=== PATIENT | male | born 1955 | race Caucasian/White ===

== ENCOUNTER 2017-11-07 22:58 | Inpatient (IN) | payer MEDICARE, OTHER ==
[~2017-11-07] VITALS: Ht 172.7 cm; Wt 81.2 kg
[2017-11-07] MEDS ORDERED: GLUC1KIT SQ (23:42)
[2017-11-07] MEDS ORDERED: CITA20TA16 PO (23:42)
[2017-11-07] MEDS ORDERED: LEVO88TA5 PO (23:42)
[2017-11-07] MEDS ORDERED: METF500T6 PO (23:42)
[2017-11-07] MEDS ORDERED: ASEN10TA9 SL (23:42)
[2017-11-07] MEDS ORDERED: BLOO-140 IN (23:42)
[2017-11-07] MEDS ORDERED: TAMS0.4C34 PO (23:42)
[2017-11-07] MEDS ORDERED: DEXT38GE12 PO (23:42)
[2017-11-07] MEDS ORDERED: LIOT5TAB8 PO (23:42)
[2017-11-07] MEDS ORDERED: CLON1TAB5 PO (23:42)
[2017-11-07] MEDS ORDERED: DIVA-78 PO (23:42)
[2017-11-07] MEDS ORDERED: BENZ1TAB7 PO (23:42)
[2017-11-07] MEDS ORDERED: CHOL200078 PO (23:42)
[2017-11-07] MEDS ORDERED: ACET325T53 PO (23:42)
[2017-11-07] MEDS ORDERED: ASPI-605 PO (23:42)
[2017-11-07] MEDS ORDERED: BREX4TAB PO (23:42)
[2017-11-07] MEDS ORDERED: HALO10TA13 PO (23:42)
[2017-11-08] VITALS (21 sets, daily range): BP systolic 96–123; BP diastolic 39–79
[2017-11-08 00:29] LABS: CREATININE 0.8 mg/dL (0.6-1.3)
[2017-11-08] MEDS ORDERED: CEFTRIAXONE 1 G in IV DEXTROSE 5% 50 ML IV ONE (00:30)
[2017-11-08] MEDS ORDERED: PIPERACILLIN SODIUM/TAZOBACTAM 3.375 G in IV DEXTROSE 5% 50 ML IV ONE (00:30)
[2017-11-08 00:35] LABS: BASOPHILS % (AUTO) 0.5 % (0.0-2.0); BILIRUBIN,DIRECT 0.2 mg/dL (0.0-0.2); BILIRUBIN,TOTAL 0.4 mg/dL (0.2-1.0); HEMATOCRIT 32.5 % (36.7-47.1); HEMOGLOBIN 11.3 g/dL (12.5-16.3); LYMPHOCYTES % (AUTO) 24.1 % (20.5-51.5); MEAN CORPUSCULAR HGB CONC 35 g/dL (32.5-36.3); MEAN CORPUSCULAR VOLUME 106.7 fL (73.0-96.2); MONOCYTES # (AUTO) 0.5 K/uL (2.0-10.0); MONOCYTES % (AUTO) 10.7 % (0.0-11.0); NEUTROPHILS # (AUTO) 2.8 K/uL (1.8-8.9); NEUTROPHILS % (AUTO) 63.7 % (38.5-71.5); PLATELET COUNT (AUTO) 100 K/uL (152-348); RED BLOOD CELL COUNT(AUTO) 3.05 MIL/uL (4.06-5.63); TOTAL PROTEIN, SERUM 6.6 g/dL (6.4-8.2); WHITE BLOOD COUNT (AUTO) 4.4 K/uL (3.6-10.2)
--- NOTE | 2017-11-08 00:40 | NUR ---
REPORT GIVEN TO CCU NURSESANJEEV
[2017-11-08] MEDS ORDERED: CEFTRIAXONE 1 G VIAL ONE (00:46)
[2017-11-08 00:47] LABS: THYROID STIMULATING HORMONE 6.52 mIU/mL (0.358-3.740)
[2017-11-08 00:52] LABS: MAGNESIUM 1.8 mg/dL (1.8-2.4)
[2017-11-08] MEDS ORDERED: PIPERACILLIN/TAZOBACTAM/D5W 50 ML IV ONE (01:13)
--- NOTE | 2017-11-08 01:30 | NUR ---
Pt. admitted to CCU, under care of PAVING AND SURFACING LABOURER PAM Belongs List completed
--- NOTE | 2017-11-08 01:30 | NUR ---
Rodolfo escalante in [facility] - 11/08/17 at 0221 by JCEVERARDO Pt. admitted to [facility], under care of SEASONER PAM Stoner List completed
--- NOTE | 2017-11-08 01:40 | NUR ---
RECEIVED PATIENT FROM ER VIA [employer] . TRAV STATUS .5150 DANGER TO SELF AND HALLUCINATING. DX : BRADYCARDIA.PATIENT AWAKE BUT CONFUSED . MAEX4, ABLE TO FOLLOW SIMPLE COMMANDS . ORIENTED AND CONNECTED TO ICU MONITORS . SB RATE 51, ASYMPTOMATIC BP 112/52 SATURATION 98 RA AND RR 20 . DENIES PAIN WHEN ASKED . PHOTO TAKE ON PATIENT LOWER BILATERAL EXTREMITIES DISCOLORATION, LEFT FOOT WITH WOUND ,DRY WITH SCAB AND SACRAL KADE REDNESS , WELL REFER/ CONSULT TO ENVIRONMENTAL HEALTH PHYSICIAN . CONTINUE TO MONITOR V/S AND LEVELS OF COMFORT .UNABLE TO COLLECT ADMISSION DATA FROM PATIENT C/O AMS/CONFUSED DATA COLLECTED FROM CHART .
--- NOTE | 2017-11-08 02:22 | NUR ---
CALLED [facility] FOR ADMISSION ORDERS. ANALI OROZCO ANSWERED BACK AND SHE SAID SHE KNOWS HIM, AND SHE WILL PUT ORDERS .
[2017-11-08] MEDS ORDERED: ACETAMINOPHEN 325 MG TABLET PO PRN ×2 (02:30→16:30)
[2017-11-08] MEDS ORDERED: HYDROCODONE/APAP 5-325MG TABLET PO PRN (02:30)
[2017-11-08] MEDS ORDERED: ZOLPIDEM 5 MG TABLET PO PRN (02:30)
[2017-11-08] MEDS ORDERED: ONDANSETRON 4 MG/2 ML VIAL IV PRN (02:30)
[2017-11-08] MEDS ORDERED: MAGNESIUM HYDROXIDE 30 ML LIQUID UDC PO PRN (02:30)
--- NOTE | 2017-11-08 02:30 | NUR ---
NOT AGGRESSIVE AND DENIES SUICIDAL IDEATION NOTED ONLY WORD SALAD AND CONFUSION AND DISORIENTATION BUT FOLLOW SIMPLE COMMANDS .ABLE TO VERBALIZED NEEDS .
[2017-11-08] MEDS: IV NS 1000 ML 1,000 ML IV PRN ×2 (02:48→17:25)
--- NOTE | 2017-11-08 03:58 | NUR ---
PATIENT SLEEPING IN BED , CONFUSED BUT CALM AND FOLLOW COMMANDS .PATIENT ABLE TO REPOSITION SELF IN BED .NO RESPIRATORY DISTRESS BREATHING EVEN AND UNLABORED . ,SB [address] CONDOM CATHETER IN PLACE .
[2017-11-08 05:12] LABS: BASOPHILS % (AUTO) 0.6 % (0.0-2.0); EOSINOPHILS % (AUTO) 0.8 % (0.0-7.0); HEMATOCRIT 32.3 % (36.7-47.1); HEMOGLOBIN 11.1 g/dL (12.5-16.3); LYMPHOCYTES % (AUTO) 23.6 % (20.5-51.5); MEAN CORPUSCULAR HGB CONC 34 g/dL (32.5-36.3); MEAN CORPUSCULAR VOLUME 104.7 fL (73.0-96.2); MONOCYTES # (AUTO) 0.4 K/uL (2.0-10.0); MONOCYTES % (AUTO) 10.8 % (0.0-11.0); NEUTROPHILS # (AUTO) 2.6 K/uL (1.8-8.9); NEUTROPHILS % (AUTO) 64.2 % (38.5-71.5); PLATELET COUNT (AUTO) 102 K/uL (152-348); RED BLOOD CELL COUNT(AUTO) 3.08 MIL/uL (4.06-5.63); WHITE BLOOD COUNT (AUTO) 4.1 K/uL (3.6-10.2)
[2017-11-08 05:28] LABS: CREATININE 0.7 mg/dL (0.6-1.3); MAGNESIUM 1.7 mg/dL (1.8-2.4); PHOSPHOROUS 4.5 mg/dL (2.5-4.9); POTASSIUM 3.9 mmol/L (3.5-5.1)
--- NOTE | 2017-11-08 07:30 | NUR ---
RECEIVED A 62 Y/O MALE PT A CASE OF BRADYCARDIA ASYMPTOMATIC DENIES CHEST PAIN. ON TRAV STATUS AND 5150 DANGER TO SELF AND HALLUCINATING. AWAKE BUT ORIENTEDX2 CONFUSED. AND CONNECTED TO ECG MONITOR.PATIENT HAS LOWER BILATERAL EXTREMITIES DISCOLORATION, LEFT FOOT WITH WOUND ,DRY WITH SCAB AND SACRAL REDNESS . HAS TWO PERIPHERAL LINES LT WRIST G20, RT AC G20, URINATING VIA CONDOM CATHETER. WILL CONTINUE TO MONITOR V/S.
[2017-11-08] MEDS: MAGNESIUM SULFATE/D5W 100 ML IV SCH ×2 (11:26→12:34)
--- NOTE | 2017-11-08 14:15 | NUR ---
SEEN BY ANALI CONDE AND UPDATES GIVEN , ORDERED VERBALLY TO RN SAM (AUTO PARTS PROFESSIONAL) TO DOWNGRADE PT TO TELE UNIT.
[2017-11-08] MEDS ORDERED: DEXTROSE 50% 50 ML DISP.SYRIN IV PRN (17:00)
[2017-11-08] MEDS ORDERED: INSULIN REGULAR, HUMAN 300 UNIT/3 ML VIAL SQ PRN (17:00)
[2017-11-08] MEDS: DIVALPROEX 500 MG TABLET.DR PO SCH (17:26)
[2017-11-08] MEDS: BENZTROPINE MESYLATE 1 MG TABLET PO SCH (17:26)
[2017-11-08] MEDS: HALOPERIDOL 5 MG TABLET PO SCH (17:26)
[2017-11-08] MEDS: CLONAZEPAM 1 MG TABLET PO SCH (17:35)
--- NOTE | 2017-11-08 18:00 | NUR ---
SEEN BY DR BLACKBURN,ASSESSED THE PT AND UPDATES GIVEN.THE PT IS MEDICALLY CLEARED TO GO TO [facility]
--- NOTE | 2017-11-08 18:46 | NUR ---
SEEN BY DR GILLESPIE PSYCHIATRIST, UPDATES GIVEN , PT TO BE TRANSFERRED TO TELE UNIT. WITH ALL BELONGINGS
--- NOTE | 2017-11-08 19:00 | NUR ---
RECEIVED SHIFT REPORT FROM TRANSMISSION AND COORDINATION ENGINEER. PT IS SLEEPING IN BED, AROUSABLE. UPON ASSESSMENT, PT'S VS 77/32, MO 51, RR 19, SPO2 97% ON ROOM AIR. PT PLACED IN REVERSE TRENDELENBERG POSITION, NOTIFIED ANALI CONDE, AND DR. BLACKBURN. DR. BLACKBURN ORDERED FOR 1000 ML OF NS TO BE GIVEN BOLUS AND TO FOLLOW WITH LEVOPHED PROTOCOL IN ICU. PT TRANS TO ICU, REPORT GIVEN TO TRANSMISSION AND COORDINATION ENGINEER. Addendum: 11/08/17 at 2142 by MONTEZ TORRES RN 1930 - PT'S V/S 81/36, HR 52, RR 18, SPO2 97% ON ROOM AIR. PT SLEEPING BUT AROUSABLE. 1:1 SITTER @ BEDSIDE. PT MONITORED CLOSELY - VITALS TAKEN AND RECORDED. NS BOLUS TOLERATED WELL. IV SITE INTACT AND PATENT, SKIN IS INTACT, WARM, & DRY. ALL NEEDS ATTENDED TO. 2015 - ANALI TADEO NOTIFIED REGARDING PT'S CONDITION - DR. BLACKBURN MADE AWARE OF PT'S HYPOTENSIVE CONDITION - LATEST V/S 90/42, HR 50, RR 18, SPO2 97% ON ROOM AIR. PT TRANSFERRED TO CCU BED 4 VIA BED. REPORT GIVEN TO TRANSMISSION AND COORDINATION ENGINEER.
--- NOTE | 2017-11-08 19:12 | NUR ---
VERBAL ORDER BY ANALI CONDE IF DR BLACKBURN MEDICALLY CLEARED THE PT CAN BE TRANSFERRED TO [facility]. ORDER PUT IN
--- NOTE | 2017-11-08 20:30 | NUR ---
RECEIVED PATIENT FROM TELEMETRY VIA BED WITH SITTER C/O 5159 PATIENT WAS JUST TRANSFERRED OUT OF ICU AT 1900, PER RN PATIENT BP LOW ,77/49 RN CALLED [facility]QU[facility] AND WITH ORDER TO TRANSFER TO ICU, FOR LEVOPHED INFUSION . PATIENT IN BED SLEEPING AWAKENED AND PATIENT VERBALLY RESPONSIVE SKIN WARM AND DRY ,NO RESPIRATORY DISTRESS ,BREATHING EVEN AND UNLABORED . SB RATE OF 57, ASYMPTOMATIC BP ON ARRIVAL 122/75 MAP OF 90 RR 25 AND SATURATION OF 100% ROOM AIR . ,5 MINUTES AFTER BP RECHECKED 119/71 MAP 92 AND PATIENT AWAKE AND VERBALIZED HE WANTS TO EAT . HOB UP AND GIVEN FOOD , ABLE TO SPOON FED SELF WITH GOOD APPETITE HAD APPLESAUCE ,JUICES .NO LEVOPHED DRIP STARTED. CONTINUE TO MONITOR V/S ,SAFETY AND LEVELS OF COMFORT .
[2017-11-08] MEDS: TAMSULOSIN HCL 0.4 MG CAP.SR.24H PO SCH (20:56)
[2017-11-08] MEDS: BLOOD SUGAR DIAGNOSTIC 1 EACH STRIP VI SCH (20:57)
[2017-11-08] MEDS ORDERED: NOREPINEPHRINE BITARTRATE 8 MG in IV DEXTROSE 5% 500 ML IV PRN (21:15)
--- NOTE | 2017-11-08 22:00 | NUR ---
WATCHING TV . V/S WNL . CONFUSED , WITH WORLD SALAD BUT NO SUICIDAL IDEATION OR THOUGHTS.
[2017-11-09] VITALS (13 sets, daily range): BP systolic 92–127; BP diastolic 52–68
--- NOTE | 2017-11-09 00:27 | NUR ---
PATIENT IN BED SLEEPING,NO DISTRESS NOTED . V/S WNL .SEE V/S FLOW SHEET
--- NOTE | 2017-11-09 03:15 | NUR ---
PATIENT AWAKE , AM CARE DONE ,BATH PATIENT AND SKIN CARE DONE ,APPLIED LOTION TO BACK AREA AND UPPER AND LOWER EXTREMITIES.CHANGED SOILED LINENS AND GOWN .TURNED AND REPOSITION . HOB UP .
[2017-11-09 05:12] LABS: BASOPHILS % (AUTO) 0.4 % (0.0-2.0); EOSINOPHILS % (AUTO) 1.2 % (0.0-7.0); HEMATOCRIT 31.1 % (36.7-47.1); HEMOGLOBIN 10.7 g/dL (12.5-16.3); LYMPHOCYTES # (AUTO) 1.2 K/uL (20.0-40.0); LYMPHOCYTES % (AUTO) 38.2 % (20.5-51.5); MEAN CORPUSCULAR HGB CONC 34 g/dL (32.5-36.3); MEAN CORPUSCULAR VOLUME 104.9 fL (73.0-96.2); MONOCYTES # (AUTO) 0.4 K/uL (2.0-10.0); MONOCYTES % (AUTO) 12.1 % (0.0-11.0); NEUTROPHILS # (AUTO) 1.5 K/uL (1.8-8.9); NEUTROPHILS % (AUTO) 48.1 % (38.5-71.5); PLATELET COUNT (AUTO) 110 K/uL (152-348); RED BLOOD CELL COUNT(AUTO) 2.97 MIL/uL (4.06-5.63)
[2017-11-09 05:25] LABS: CARBON DIOXIDE 28 mmol/L (21-32); CHLORIDE 105 mmol/L (98-107); CREATININE 0.5 mg/dL (0.6-1.3); GLUCOSE 82 mg/dL (74-106); MAGNESIUM 1.7 mg/dL (1.8-2.4); POTASSIUM 3.9 mmol/L (3.5-5.1); UREA NITROGEN, BLOOD 13 mg/dL (7-18)
[2017-11-09] MEDS ORDERED: LIOTHYRONINE SODIUM 5 MCG TABLET PO SCH (07:00)
[2017-11-09] MEDS ORDERED: LEVOTHYROXINE SODIUM 88 MCG TABLET PO SCH (07:00)
[2017-11-09] MEDS: BLOOD SUGAR DIAGNOSTIC 1 EACH STRIP VI SCH ×4 (08:27→20:11)
[2017-11-09] MEDS: DIVALPROEX 500 MG TABLET.DR PO SCH ×2 (08:29→16:45)
[2017-11-09] MEDS: CLONAZEPAM 1 MG TABLET PO SCH ×2 (08:29→16:45)
[2017-11-09] MEDS: BENZTROPINE MESYLATE 1 MG TABLET PO SCH ×2 (08:31→16:45)
[2017-11-09] MEDS: HALOPERIDOL 5 MG TABLET PO SCH ×2 (08:32→16:44)
[2017-11-09] MEDS ORDERED: CITALOPRAM 20 MG TABLET PO SCH (09:00)
[2017-11-09] MEDS ORDERED: ASPIRIN EC 81 MG TABLET.DR PO SCH (09:00)
[2017-11-09] MEDS ORDERED: BREXPIPRAZOLE 4 MG PO SCH (09:00)
[2017-11-09] MEDS ORDERED: CHOLECALCIFEROL 1,000 UNIT TABLET PO SCH (09:00)
--- NOTE | 2017-11-09 09:56 | NUR ---
patient remains restless anxious but cooperative, ate 100% of his diet, brushing his teeth obsessively with some gum bleeding noted.
--- NOTE | 2017-11-09 10:00 | NUR ---
Gary Stiles N.P. in the unit to see and examine patient, full report given orders received see orders.
--- NOTE | 2017-11-09 10:32 | NUR ---
A call from Negro Phan , he was updated on pt's condition and provided with case management # as requested. case management informed.
[2017-11-09] MEDS ORDERED: MAGNESIUM OXIDE 400 MG TABLET PO ONE (12:00)
[2017-11-09] MEDS ORDERED: AZITHROMYCIN 250 MG TABLET PO SCH (12:28)
--- NOTE | 2017-11-09 12:59 | NUR ---
Bedside report given to tha Toribio. patient will be going to room 225 via wheelchair.
--- NOTE | 2017-11-09 13:30 | NUR ---
PATIENT TRANSFERRED IN FROM CCU TELE STATUS, AMBULATED VIA WALKER WITH STANDBY ASSIST FAIRLY TOLERATED. PATIENT IS PLEASANT, BUT DELUSIONAL. 1:1 AT BEDSIDE
[2017-11-09] MEDS: IV NS 1000 ML 1,000 ML IV PRN (15:39)
--- NOTE | 2017-11-09 18:01 | NUR ---
CONTINUE 1:1 SITTER FOR [address] SYKES IN MADE AWARE OF EXPIRATION TIME TOMORROW AND SAID WILL SEE PATIENT BEFORE THE TIME
--- NOTE | 2017-11-09 19:32 | NUR ---
RECEIVED SHIFT REPORT FROM LINETTE AGUILAR. PT SLEEPING IN BED. DOES NOT APPEAR TO BE IN APPARENT DISTRESS. 1:1 SITTER AT BEDSIDE. IVF NS INFUSING AT 75 ML/HR VIA 20 G L HAND IV ACCESS. BED IN LOW AND LOCKED POSITION WITH BILATERAL UPPER SIDERAILS UP. CALL LIGHT WITHIN REACH. PT IS ON 5150 STATUS FOR DTS. PT IN BRADYCARDIA ON TELE MONITORING, ASYMPTOMATIC. SLEEPING, BUT EASILY AROUSABLE.
[2017-11-09] MEDS: TAMSULOSIN HCL 0.4 MG CAP.SR.24H PO SCH (20:08)
== END 2017-11-09 21:00 | DRG 308 ==
LOC: ER 22:59 → CCU 11-08 01:00 → TELE 11-09 14:43
PROVIDERS: ADMIT Nurse Practitioner Acute Care; ATTEND Nurse Practitioner Acute Care
DX: I45.81 Long QT syndrome (principal); G92 Toxic encephalopathy; J18.9 Pneumonia, unspecified organism; R00.1 Bradycardia, unspecified; T43.505A Adverse effect of unspecified antipsychotics and neuroleptics, initial encounter; T50.905A Adverse effect of unspecified drugs, medicaments and biological substances, initial encounter; Y92.239 Unspecified place in hospital as the place of occurrence of the external cause; F25.0 Schizoaffective disorder, bipolar type; E03.9 Hypothyroidism, unspecified; G20 Parkinson's disease; Z79.899 Other long term (current) drug therapy; Z91.14 Patient's other noncompliance with medication regimen; R26.81 Unsteadiness on feet; N40.0 Benign prostatic hyperplasia without lower urinary tract symptoms; E11.9 Type 2 diabetes mellitus without complications; I10 Essential (primary) hypertension; I95.2 Hypotension due to drugs; Z79.4 Long term (current) use of insulin
CPT/HCPCS: 36415; 70030-TC; 71045; 83605; 83735; 84100; 84443; 84480; 85025; 85730; 87040; 93005; A4663; J0696; J1815; J2543; J3475; J7030; J7060; Q0144

== ENCOUNTER 2017-11-09 21:08 | Inpatient (IN) | payer MEDICARE ==
[~2017-11-09] VITALS: Ht 182.9 cm; Wt 78.9 kg
[2017-11-09 19:30] VITALS: BP 118/58
[~2017-11-09 21:08] MED LIST: ACET325T53 PO; ASEN10TA9 SL; ASPI-605 PO; BENZ1TAB7 PO; BLOO-140 IN; BREX4TAB PO; CHOL200078 PO; CITA20TA16 PO; CLON1TAB5 PO; DEXT38GE12 PO; DIVA-78 PO; GLUC1KIT SQ; HALO10TA13 PO; LEVO88TA5 PO; LIOT5TAB8 PO; METF500T6 PO; TAMS0.4C34 PO
[2017-11-09] MEDS ORDERED: MAGNESIUM HYDROXIDE 30 ML LIQUID UDC PO PRN ×2 (21:30→22:15)
[2017-11-09] MEDS ORDERED: ZOLPIDEM 5 MG TABLET PO PRN (21:30)
[2017-11-09] MEDS ORDERED: MAG HYDROX/AL HYDROX/SIMETH 30 ML LIQUID UDC PO PRN ×2 (21:30→22:15)
[2017-11-09] MEDS ORDERED: ACETAMINOPHEN 325 MG TABLET PO PRN (21:30)
[2017-11-09] MEDS ORDERED: INSULIN REGULAR, HUMAN 300 UNITS/3 ML VIAL SQ PRN (22:00)
[2017-11-09] MEDS ORDERED: DEXTROSE 50% 50 ML DISP.SYRIN IV PRN (22:00)
[2017-11-09] MEDS ORDERED: INSULIN REGULAR, HUMAN 300 UNIT/3 ML VIAL SQ PRN (22:00)
[2017-11-10 04:00] VITALS: BP 113/57
[2017-11-10] MEDS: BLOOD SUGAR DIAGNOSTIC 1 EACH STRIP VI SCH ×4 (06:30→20:24)
[2017-11-10] MEDS: CHOLECALCIFEROL 1,000 UNIT TABLET PO SCH (08:46)
[2017-11-10] MEDS: LIOTHYRONINE SODIUM 5 MCG TABLET PO SCH (08:46)
[2017-11-10] MEDS: LEVOTHYROXINE SODIUM 88 MCG TABLET PO SCH (08:46)
[2017-11-10] MEDS: ASPIRIN EC 81 MG TABLET.DR PO SCH (08:46)
[2017-11-10] MEDS: DIVALPROEX ER 500 MG TAB.SR.24H PO SCH ×2 (10:33→20:12)
[2017-11-10] MEDS: BENZTROPINE MESYLATE 1 MG TABLET PO SCH ×3 (10:33→17:16)
[2017-11-10] MEDS: CLONAZEPAM 0.5 MG TABLET PO SCH ×4 (10:33→17:16)
[2017-11-10] MEDS: HALOPERIDOL 5 MG TABLET PO SCH ×5 (10:33→20:12)
[2017-11-10 11:00] VITALS: BP 100/57
[2017-11-10 14:31] VITALS: BP 97/38
[2017-11-10] MEDS: TAMSULOSIN HCL 0.4 MG CAP.SR.24H PO SCH (17:16)
[2017-11-10 17:45] VITALS: BP 123/68
[2017-11-10 17:57] VITALS: BP 88/44
[2017-11-10 21:23] VITALS: BP 125/60
[2017-11-11] MEDS: BLOOD SUGAR DIAGNOSTIC 1 EACH STRIP VI SCH ×4 (06:37→21:22)
[2017-11-11 07:30] VITALS: BP 117/50
[2017-11-11] MEDS: DIVALPROEX ER 500 MG TAB.SR.24H PO SCH ×2 (08:24→21:21)
[2017-11-11] MEDS: METFORMIN HCL 500 MG TABLET PO SCH (08:24)
[2017-11-11] MEDS: BENZTROPINE MESYLATE 1 MG TABLET PO SCH ×3 (08:24→17:07)
[2017-11-11] MEDS: ASPIRIN EC 81 MG TABLET.DR PO SCH (08:25)
[2017-11-11] MEDS: CLONAZEPAM 0.5 MG TABLET PO SCH ×3 (08:25→17:07)
[2017-11-11] MEDS: HALOPERIDOL 5 MG TABLET PO SCH ×4 (08:25→21:21)
[2017-11-11] MEDS: LEVOTHYROXINE SODIUM 88 MCG TABLET PO SCH (08:25)
[2017-11-11] MEDS: CHOLECALCIFEROL 1,000 UNIT TABLET PO SCH (08:25)
[2017-11-11] MEDS: LIOTHYRONINE SODIUM 5 MCG TABLET PO SCH (08:34)
[2017-11-11 16:04] VITALS: BP 91/44
[2017-11-11] MEDS: TAMSULOSIN HCL 0.4 MG CAP.SR.24H PO SCH (17:07)
[2017-11-11 20:40] VITALS: BP 104/56
[2017-11-12] MEDS: BLOOD SUGAR DIAGNOSTIC 1 EACH STRIP VI SCH ×4 (06:42→20:41)
[2017-11-12 07:30] VITALS: BP 91/47
[2017-11-12] MEDS: DIVALPROEX ER 500 MG TAB.SR.24H PO SCH ×2 (08:55→20:12)
[2017-11-12] MEDS: ASPIRIN EC 81 MG TABLET.DR PO SCH (08:55)
[2017-11-12] MEDS: CHOLECALCIFEROL 1,000 UNIT TABLET PO SCH (08:55)
[2017-11-12] MEDS: METFORMIN HCL 500 MG TABLET PO SCH (08:55)
[2017-11-12] MEDS: HALOPERIDOL 5 MG TABLET PO SCH ×4 (08:55→20:12)
[2017-11-12] MEDS: CLONAZEPAM 0.5 MG TABLET PO SCH ×3 (08:55→17:35)
[2017-11-12] MEDS: BENZTROPINE MESYLATE 1 MG TABLET PO SCH ×3 (08:55→17:35)
[2017-11-12] MEDS: LEVOTHYROXINE SODIUM 88 MCG TABLET PO SCH (08:57)
[2017-11-12] MEDS: LIOTHYRONINE SODIUM 5 MCG TABLET PO SCH (09:04)
[2017-11-12 16:11] VITALS: BP 90/50
[2017-11-12] MEDS: TAMSULOSIN HCL 0.4 MG CAP.SR.24H PO SCH (17:35)
[2017-11-12 20:25] VITALS: BP 96/56
[2017-11-13] MEDS: BLOOD SUGAR DIAGNOSTIC 1 EACH STRIP VI SCH ×3 (06:33→16:50)
[2017-11-13] MEDS: LEVOTHYROXINE SODIUM 88 MCG TABLET PO SCH (06:33)
[2017-11-13 07:30] VITALS: BP 96/53
[2017-11-13] MEDS: METFORMIN HCL 500 MG TABLET PO SCH (08:54)
[2017-11-13] MEDS: CHOLECALCIFEROL 1,000 UNIT TABLET PO SCH (08:54)
[2017-11-13] MEDS: HALOPERIDOL 5 MG TABLET PO SCH ×3 (08:54→16:17)
[2017-11-13] MEDS: ASPIRIN EC 81 MG TABLET.DR PO SCH (08:55)
[2017-11-13] MEDS: BENZTROPINE MESYLATE 1 MG TABLET PO SCH ×3 (08:55→16:17)
[2017-11-13] MEDS: DIVALPROEX ER 500 MG TAB.SR.24H PO SCH ×2 (08:55→20:16)
[2017-11-13] MEDS: CLONAZEPAM 0.5 MG TABLET PO SCH ×2 (08:55→16:17)
[2017-11-13] MEDS: LIOTHYRONINE SODIUM 5 MCG TABLET PO SCH (08:57)
[2017-11-13] MEDS: ACETAMINOPHEN 325 MG TABLET PO PRN (13:37)
[2017-11-13 16:07] VITALS: BP 107/50
[2017-11-13] MEDS: TAMSULOSIN HCL 0.4 MG CAP.SR.24H PO SCH (17:03)
[2017-11-13 19:30] VITALS: BP 97/58
[2017-11-14] MEDS: LEVOTHYROXINE SODIUM 88 MCG TABLET PO SCH (06:33)
[2017-11-14 07:30] VITALS: BP 105/49
[2017-11-14 08:30] VITALS: BP 104/56
[2017-11-14] MEDS: LIOTHYRONINE SODIUM 5 MCG TABLET PO SCH (09:55)
[2017-11-14] MEDS: ASPIRIN EC 81 MG TABLET.DR PO SCH (09:55)
[2017-11-14] MEDS: HALOPERIDOL 5 MG TABLET PO SCH ×3 (09:56→17:02)
[2017-11-14] MEDS: CLONAZEPAM 0.5 MG TABLET PO SCH ×2 (09:56→17:02)
[2017-11-14] MEDS: CHOLECALCIFEROL 1,000 UNIT TABLET PO SCH (09:56)
[2017-11-14] MEDS: METFORMIN HCL 500 MG TABLET PO SCH (09:57)
[2017-11-14] MEDS: BENZTROPINE MESYLATE 1 MG TABLET PO SCH ×3 (09:57→17:02)
[2017-11-14] MEDS: DIVALPROEX ER 250 MG TAB.SR.24H PO SCH ×2 (10:06→20:27)
[2017-11-14] MEDS: ACETAMINOPHEN 325 MG TABLET PO PRN (13:26)
[2017-11-14 16:28] VITALS: BP 109/46
[2017-11-14] MEDS: TAMSULOSIN HCL 0.4 MG CAP.SR.24H PO SCH (17:02)
[2017-11-14 19:30] VITALS: BP 103/72
[2017-11-14] MEDS ORDERED: DIVALPROEX ER 500 MG TAB.SR.24H PO SCH (21:00)
[2017-11-15] MEDS: LEVOTHYROXINE SODIUM 88 MCG TABLET PO SCH (06:34)
[2017-11-15 07:30] VITALS: BP 104/52
[2017-11-15 09:09] LABS: BASOPHILS % (AUTO) 1.4 % (0.0-2.0); HEMATOCRIT 37.8 % (36.7-47.1); HEMOGLOBIN 12.8 g/dL (12.5-16.3); LYMPHOCYTES # (AUTO) 1.5 K/uL (20.0-40.0); LYMPHOCYTES % (AUTO) 48.8 % (20.5-51.5); MEAN CORPUSCULAR HEMOGLOBIN 36.3 uug (23.8-33.4); MEAN CORPUSCULAR HGB CONC 34 g/dL (32.5-36.3); MEAN CORPUSCULAR VOLUME 107.5 fL (73.0-96.2); MONOCYTES # (AUTO) 0.2 K/uL (2.0-10.0); NEUTROPHILS # (AUTO) 1.3 K/uL (1.8-8.9); NEUTROPHILS % (AUTO) 41.8 % (38.5-71.5); PLATELET COUNT (AUTO) 202 K/uL (152-348); RED BLOOD CELL COUNT(AUTO) 3.51 MIL/uL (4.06-5.63)
[2017-11-15 09:50] LABS: CREATININE 0.7 mg/dL (0.6-1.3); POTASSIUM 4.2 mmol/L (3.5-5.1)
[2017-11-15] MEDS: LIOTHYRONINE SODIUM 5 MCG TABLET PO SCH (09:58)
[2017-11-15] MEDS: HALOPERIDOL 5 MG TABLET PO SCH ×3 (09:58→18:15)
[2017-11-15] MEDS: DIVALPROEX ER 250 MG TAB.SR.24H PO SCH ×2 (09:58→21:00)
[2017-11-15] MEDS: CHOLECALCIFEROL 1,000 UNIT TABLET PO SCH (09:59)
[2017-11-15] MEDS: METFORMIN HCL 500 MG TABLET PO SCH (09:59)
[2017-11-15] MEDS: BENZTROPINE MESYLATE 1 MG TABLET PO SCH ×3 (09:59→18:15)
[2017-11-15] MEDS: CLONAZEPAM 0.5 MG TABLET PO SCH ×2 (09:59→18:15)
[2017-11-15] MEDS: ASPIRIN EC 81 MG TABLET.DR PO SCH (09:59)
[2017-11-15 12:47] VITALS: BP 110/46
[2017-11-15 13:53] VITALS: BP 80/32
[2017-11-15 17:17] VITALS: BP 86/45
[2017-11-15 18:13] VITALS: BP 121/65
[2017-11-15] MEDS: TAMSULOSIN HCL 0.4 MG CAP.SR.24H PO SCH (18:15)
[2017-11-15 20:21] VITALS: BP 96/35
[2017-11-16 06:00] VITALS: BP 86/62
[2017-11-16] MEDS: LEVOTHYROXINE SODIUM 88 MCG TABLET PO SCH ×2 (06:01→10:42)
[2017-11-16 06:15] VITALS: BP 110/49
[2017-11-16 07:30] VITALS: BP 105/54
[2017-11-16] MEDS: CLONAZEPAM 0.5 MG TABLET PO SCH (09:00)
[2017-11-16] MEDS: LIOTHYRONINE SODIUM 5 MCG TABLET PO SCH (10:41)
[2017-11-16] MEDS: DIVALPROEX ER 250 MG TAB.SR.24H PO SCH ×2 (10:42→20:14)
[2017-11-16] MEDS: ASPIRIN EC 81 MG TABLET.DR PO SCH (10:42)
[2017-11-16] MEDS: BENZTROPINE MESYLATE 1 MG TABLET PO SCH (10:42)
[2017-11-16] MEDS: CHOLECALCIFEROL 1,000 UNIT TABLET PO SCH (10:42)
[2017-11-16] MEDS: HALOPERIDOL 5 MG TABLET PO SCH ×3 (10:42→17:09)
[2017-11-16] MEDS: METFORMIN HCL 500 MG TABLET PO SCH (10:42)
[2017-11-16 15:00] VITALS: BP 92/47
[2017-11-16] MEDS: TAMSULOSIN HCL 0.4 MG CAP.SR.24H PO SCH (17:09)
[2017-11-16 20:00] VITALS: BP 100/47
[2017-11-17] MEDS: ACETAMINOPHEN 325 MG TABLET PO PRN (03:35)
[2017-11-17] MEDS: LEVOTHYROXINE SODIUM 88 MCG TABLET PO SCH (06:24)
[2017-11-17 07:30] VITALS: BP 93/50
[2017-11-17] MEDS: CHOLECALCIFEROL 1,000 UNIT TABLET PO SCH (08:41)
[2017-11-17] MEDS: ASPIRIN EC 81 MG TABLET.DR PO SCH (08:41)
[2017-11-17] MEDS: HALOPERIDOL 5 MG TABLET PO SCH ×3 (08:41→17:47)
[2017-11-17] MEDS: BENZTROPINE MESYLATE 1 MG TABLET PO PRN (08:41)
[2017-11-17] MEDS: LIOTHYRONINE SODIUM 5 MCG TABLET PO SCH (08:55)
[2017-11-17] MEDS: DIVALPROEX ER 250 MG TAB.SR.24H PO SCH ×2 (08:58→20:10)
[2017-11-17] MEDS: METFORMIN HCL 500 MG TABLET PO SCH (08:58)
[2017-11-17] MEDS ORDERED: ZOLPIDEM 5 MG TABLET PO PRN (09:00)
[2017-11-17 16:28] VITALS: BP 97/45
[2017-11-17] MEDS: TAMSULOSIN HCL 0.4 MG CAP.SR.24H PO SCH (17:47)
[2017-11-17] MEDS: MIDODRINE HCL 5 MG TABLET PO SCH (20:09)
[2017-11-17 20:30] VITALS: BP 109/40
[2017-11-18] MEDS: LEVOTHYROXINE SODIUM 88 MCG TABLET PO SCH (06:39)
[2017-11-18 07:30] VITALS: BP 83/53
[2017-11-18] MEDS: ASPIRIN EC 81 MG TABLET.DR PO SCH (08:27)
[2017-11-18] MEDS: METFORMIN HCL 500 MG TABLET PO SCH (08:28)
[2017-11-18] MEDS: CHOLECALCIFEROL 1,000 UNIT TABLET PO SCH (08:28)
[2017-11-18] MEDS: MIDODRINE HCL 5 MG TABLET PO SCH ×2 (08:28→20:31)
[2017-11-18] MEDS: LIOTHYRONINE SODIUM 5 MCG TABLET PO SCH (08:28)
[2017-11-18] MEDS: HALOPERIDOL 5 MG TABLET PO SCH ×3 (10:07→16:20)
[2017-11-18] MEDS: DIVALPROEX ER 250 MG TAB.SR.24H PO SCH ×2 (10:08→20:31)
[2017-11-18] MEDS: ACETAMINOPHEN 325 MG TABLET PO PRN (16:21)
[2017-11-18 16:55] VITALS: BP 106/53
[2017-11-18] MEDS: TAMSULOSIN HCL 0.4 MG CAP.SR.24H PO SCH (17:01)
[2017-11-18 20:00] VITALS: BP 105/50
[2017-11-18] MEDS ORDERED: QUETIAPINE FUMARATE 100 MG TABLET PO SCH (21:00)
[2017-11-19] MEDS: LEVOTHYROXINE SODIUM 88 MCG TABLET PO SCH (06:38)
[2017-11-19 07:30] VITALS: BP 100/50
[2017-11-19] MEDS: MIDODRINE HCL 5 MG TABLET PO SCH ×2 (08:12→20:26)
[2017-11-19] MEDS: CHOLECALCIFEROL 1,000 UNIT TABLET PO SCH (08:12)
[2017-11-19] MEDS: METFORMIN HCL 500 MG TABLET PO SCH (08:12)
[2017-11-19] MEDS: LIOTHYRONINE SODIUM 5 MCG TABLET PO SCH (08:12)
[2017-11-19] MEDS: ASPIRIN EC 81 MG TABLET.DR PO SCH (08:12)
[2017-11-19] MEDS: BENZTROPINE MESYLATE 1 MG TABLET PO PRN ×2 (09:47→17:03)
[2017-11-19] MEDS: DIVALPROEX ER 250 MG TAB.SR.24H PO SCH ×2 (09:47→20:26)
[2017-11-19] MEDS: HALOPERIDOL 5 MG TABLET PO SCH ×3 (09:47→17:03)
[2017-11-19] MEDS: ACETAMINOPHEN 325 MG TABLET PO PRN (14:04)
[2017-11-19 16:46] VITALS: BP 110/52
[2017-11-19] MEDS: TAMSULOSIN HCL 0.4 MG CAP.SR.24H PO SCH (17:03)
[2017-11-19 19:30] VITALS: BP 102/55
[2017-11-19] MEDS: QUETIAPINE FUMARATE 100 MG TABLET PO SCH (20:26)
[2017-11-20] MEDS: LEVOTHYROXINE SODIUM 88 MCG TABLET PO SCH (06:33)
[2017-11-20 07:00] LABS: BASOPHILS % (AUTO) 0.5 % (0.0-2.0); EOSINOPHILS % (AUTO) 0.7 % (0.0-7.0); HEMATOCRIT 35.1 % (36.7-47.1); HEMOGLOBIN 12.1 g/dL (12.5-16.3); LYMPHOCYTES # (AUTO) 1.7 K/uL (20.0-40.0); LYMPHOCYTES % (AUTO) 58.2 % (20.5-51.5); MEAN CORPUSCULAR HEMOGLOBIN 37.1 uug (23.8-33.4); MEAN CORPUSCULAR HGB CONC 35 g/dL (32.5-36.3); MEAN CORPUSCULAR VOLUME 107.2 fL (73.0-96.2); MONOCYTES # (AUTO) 0.2 K/uL (2.0-10.0); MONOCYTES % (AUTO) 8.7 % (0.0-11.0); NEUTROPHILS # (AUTO) 0.9 K/uL (1.8-8.9); NEUTROPHILS % (AUTO) 31.9 % (38.5-71.5); PLATELET COUNT (AUTO) 159 K/uL (152-348); RED BLOOD CELL COUNT(AUTO) 3.27 MIL/uL (4.06-5.63); WHITE BLOOD COUNT (AUTO) 2.9 K/uL (3.6-10.2)
[2017-11-20 07:18] LABS: CREATININE 0.7 mg/dL (0.6-1.3); POTASSIUM 4.1 mmol/L (3.5-5.1)
[2017-11-20 07:30] VITALS: BP 96/50
[2017-11-20 07:33] LABS: THYROID STIMULATING HORMONE 1.94 mIU/mL (0.358-3.740)
[2017-11-20] MEDS ORDERED: DIVALPROEX ER 250 MG TAB.SR.24H PO SCH (09:00)
[2017-11-20] MEDS: BENZTROPINE MESYLATE 1 MG TABLET PO PRN ×2 (09:02→16:52)
[2017-11-20] MEDS: LIOTHYRONINE SODIUM 5 MCG TABLET PO SCH (09:03)
[2017-11-20] MEDS: METFORMIN HCL 500 MG TABLET PO SCH (09:03)
[2017-11-20] MEDS: CHOLECALCIFEROL 1,000 UNIT TABLET PO SCH (09:03)
[2017-11-20] MEDS: ASPIRIN EC 81 MG TABLET.DR PO SCH (09:03)
[2017-11-20] MEDS: HALOPERIDOL 5 MG TABLET PO SCH ×3 (09:03→16:53)
[2017-11-20] MEDS: MIDODRINE HCL 5 MG TABLET PO SCH ×2 (09:04→20:16)
[2017-11-20] MEDS: DIVALPROEX ER 500 MG TAB.SR.24H PO SCH ×2 (09:39→20:16)
[2017-11-20 09:54] LABS: BASOPHILS % (MANUAL) 1 % (0-2); LYMPHOCYTES % (MANUAL) 57 % (20-40); MONOCYTES % (MANUAL) 8 % (2-10); NEUTROPHILS % (MANUAL) 34 % (42-75)
[2017-11-20] MEDS: ACETAMINOPHEN 325 MG TABLET PO PRN ×2 (12:22→16:53)
[2017-11-20 16:04] VITALS: BP 99/58
[2017-11-20] MEDS: TAMSULOSIN HCL 0.4 MG CAP.SR.24H PO SCH (17:35)
[2017-11-20 19:30] VITALS: BP 109/59
[2017-11-20] MEDS: QUETIAPINE FUMARATE 100 MG TABLET PO SCH (20:16)
[2017-11-21] MEDS: LEVOTHYROXINE SODIUM 88 MCG TABLET PO SCH (06:33)
[2017-11-21 07:30] VITALS: BP 104/54
[2017-11-21] MEDS: ASPIRIN EC 81 MG TABLET.DR PO SCH (08:27)
[2017-11-21] MEDS: CHOLECALCIFEROL 1,000 UNIT TABLET PO SCH (08:27)
[2017-11-21] MEDS: DIVALPROEX ER 500 MG TAB.SR.24H PO SCH ×2 (08:27→20:03)
[2017-11-21] MEDS: LIOTHYRONINE SODIUM 5 MCG TABLET PO SCH (08:27)
[2017-11-21] MEDS: METFORMIN HCL 500 MG TABLET PO SCH (08:27)
[2017-11-21] MEDS: HALOPERIDOL 5 MG TABLET PO SCH ×3 (08:27→16:26)
[2017-11-21] MEDS: MIDODRINE HCL 5 MG TABLET PO SCH ×2 (08:27→20:04)
[2017-11-21] MEDS: BENZTROPINE MESYLATE 1 MG TABLET PO PRN (12:19)
[2017-11-21] MEDS: ACETAMINOPHEN 325 MG TABLET PO PRN (12:19)
[2017-11-21 16:26] VITALS: BP 104/49
[2017-11-21] MEDS: TAMSULOSIN HCL 0.4 MG CAP.SR.24H PO SCH (17:18)
[2017-11-21] MEDS: QUETIAPINE FUMARATE 100 MG TABLET PO SCH (20:04)
[2017-11-21 20:12] VITALS: BP 102/50
[2017-11-22] MEDS: LEVOTHYROXINE SODIUM 88 MCG TABLET PO SCH (06:34)
[2017-11-22 07:30] VITALS: BP 103/50
[2017-11-22] MEDS: DIVALPROEX ER 500 MG TAB.SR.24H PO SCH ×2 (08:01→20:31)
[2017-11-22] MEDS: METFORMIN HCL 500 MG TABLET PO SCH (08:01)
[2017-11-22] MEDS: HALOPERIDOL 5 MG TABLET PO SCH ×3 (08:02→16:50)
[2017-11-22] MEDS: ASPIRIN EC 81 MG TABLET.DR PO SCH (08:02)
[2017-11-22] MEDS: CHOLECALCIFEROL 1,000 UNIT TABLET PO SCH (08:02)
[2017-11-22] MEDS: MIDODRINE HCL 5 MG TABLET PO SCH ×2 (08:05→20:32)
[2017-11-22] MEDS: LIOTHYRONINE SODIUM 5 MCG TABLET PO SCH (08:05)
[2017-11-22] MEDS: OLANZAPINE 5 MG TABLET PO SCH ×2 (10:39→20:32)
[2017-11-22 15:47] VITALS: BP 107/56
[2017-11-22] MEDS: TAMSULOSIN HCL 0.4 MG CAP.SR.24H PO SCH (16:50)
[2017-11-22] MEDS: ACETAMINOPHEN 325 MG TABLET PO PRN (18:14)
[2017-11-22 19:30] VITALS: BP 114/55
[2017-11-23] MEDS: LEVOTHYROXINE SODIUM 88 MCG TABLET PO SCH (06:50)
[2017-11-23 07:30] VITALS: BP 100/62
[2017-11-23] MEDS: LIOTHYRONINE SODIUM 5 MCG TABLET PO SCH (08:35)
[2017-11-23] MEDS: METFORMIN HCL 500 MG TABLET PO SCH (08:35)
[2017-11-23] MEDS: CHOLECALCIFEROL 1,000 UNIT TABLET PO SCH (08:36)
[2017-11-23] MEDS: OLANZAPINE 5 MG TABLET PO SCH ×2 (08:36→20:01)
[2017-11-23] MEDS: ASPIRIN EC 81 MG TABLET.DR PO SCH (08:36)
[2017-11-23] MEDS: HALOPERIDOL 5 MG TABLET PO SCH ×3 (08:36→16:49)
[2017-11-23] MEDS: MIDODRINE HCL 5 MG TABLET PO SCH ×2 (08:38→20:25)
[2017-11-23] MEDS: DIVALPROEX ER 500 MG TAB.SR.24H PO SCH ×2 (08:48→20:00)
[2017-11-23] MEDS: ACETAMINOPHEN 325 MG TABLET PO PRN (12:20)
[2017-11-23 15:13] VITALS: BP 103/56
[2017-11-23] MEDS: TAMSULOSIN HCL 0.4 MG CAP.SR.24H PO SCH (17:25)
[2017-11-23 20:00] VITALS: BP 97/52
[2017-11-24] MEDS: LEVOTHYROXINE SODIUM 88 MCG TABLET PO SCH (06:43)
[2017-11-24 08:00] VITALS: BP 107/55
[2017-11-24] MEDS: METFORMIN HCL 500 MG TABLET PO SCH (08:07)
[2017-11-24] MEDS: MIDODRINE HCL 5 MG TABLET PO SCH ×2 (08:08→20:05)
[2017-11-24] MEDS: DIVALPROEX ER 500 MG TAB.SR.24H PO SCH ×2 (08:14→20:04)
[2017-11-24] MEDS: HALOPERIDOL 5 MG TABLET PO SCH ×3 (08:14→16:12)
[2017-11-24] MEDS: LIOTHYRONINE SODIUM 5 MCG TABLET PO SCH (08:14)
[2017-11-24] MEDS: CHOLECALCIFEROL 1,000 UNIT TABLET PO SCH (08:14)
[2017-11-24] MEDS: OLANZAPINE 5 MG TABLET PO SCH ×2 (08:14→20:05)
[2017-11-24] MEDS: ASPIRIN EC 81 MG TABLET.DR PO SCH (08:14)
[2017-11-24 16:29] VITALS: BP 114/60
[2017-11-24] MEDS: TAMSULOSIN HCL 0.4 MG CAP.SR.24H PO SCH (17:40)
[2017-11-24 20:35] VITALS: BP 126/68
[2017-11-25] MEDS: LEVOTHYROXINE SODIUM 88 MCG TABLET PO SCH (06:56)
[2017-11-25 07:30] VITALS: BP 107/53
[2017-11-25] MEDS: DIVALPROEX ER 500 MG TAB.SR.24H PO SCH ×2 (08:31→20:57)
[2017-11-25] MEDS: HALOPERIDOL 5 MG TABLET PO SCH ×3 (08:31→17:16)
[2017-11-25] MEDS: METFORMIN HCL 500 MG TABLET PO SCH (08:31)
[2017-11-25] MEDS: MIDODRINE HCL 5 MG TABLET PO SCH ×2 (08:31→20:57)
[2017-11-25] MEDS: LIOTHYRONINE SODIUM 5 MCG TABLET PO SCH (08:32)
[2017-11-25] MEDS: ASPIRIN EC 81 MG TABLET.DR PO SCH (08:32)
[2017-11-25] MEDS: CHOLECALCIFEROL 1,000 UNIT TABLET PO SCH (08:32)
[2017-11-25] MEDS: OLANZAPINE 5 MG TABLET PO SCH ×2 (08:32→22:01)
[2017-11-25] MEDS: ACETAMINOPHEN 325 MG TABLET PO PRN ×2 (12:55→23:42)
[2017-11-25 15:19] VITALS: BP 93/59
[2017-11-25] MEDS: TAMSULOSIN HCL 0.4 MG CAP.SR.24H PO SCH (17:34)
[2017-11-25 21:26] VITALS: BP 104/60
[2017-11-26] MEDS: LEVOTHYROXINE SODIUM 88 MCG TABLET PO SCH (06:15)
[2017-11-26 07:30] VITALS: BP 118/52
[2017-11-26] MEDS: ASPIRIN EC 81 MG TABLET.DR PO SCH (08:03)
[2017-11-26] MEDS: OLANZAPINE 5 MG TABLET PO SCH ×2 (08:03→20:19)
[2017-11-26] MEDS: CHOLECALCIFEROL 1,000 UNIT TABLET PO SCH (08:03)
[2017-11-26] MEDS: LIOTHYRONINE SODIUM 5 MCG TABLET PO SCH (08:03)
[2017-11-26] MEDS: DIVALPROEX ER 500 MG TAB.SR.24H PO SCH ×2 (08:03→20:19)
[2017-11-26] MEDS: HALOPERIDOL 5 MG TABLET PO SCH ×3 (08:04→16:21)
[2017-11-26] MEDS: MIDODRINE HCL 5 MG TABLET PO SCH ×2 (08:04→20:46)
[2017-11-26] MEDS: METFORMIN HCL 500 MG TABLET PO SCH (08:04)
[2017-11-26 15:48] VITALS: BP 120/52
[2017-11-26] MEDS: TAMSULOSIN HCL 0.4 MG CAP.SR.24H PO SCH (18:12)
[2017-11-26 21:53] VITALS: BP 118/64
[2017-11-27] MEDS: LEVOTHYROXINE SODIUM 88 MCG TABLET PO SCH (06:27)
[2017-11-27 07:30] VITALS: BP 122/67
[2017-11-27] MEDS: ACETAMINOPHEN 325 MG TABLET PO PRN ×3 (08:28→17:24)
[2017-11-27] MEDS: HALOPERIDOL 5 MG TABLET PO SCH ×3 (08:29→17:23)
[2017-11-27] MEDS: OLANZAPINE 5 MG TABLET PO SCH ×2 (08:29→20:11)
[2017-11-27] MEDS: ASPIRIN EC 81 MG TABLET.DR PO SCH (08:29)
[2017-11-27] MEDS: DIVALPROEX ER 500 MG TAB.SR.24H PO SCH ×2 (08:29→20:10)
[2017-11-27] MEDS: CHOLECALCIFEROL 1,000 UNIT TABLET PO SCH (08:29)
[2017-11-27] MEDS: BENZTROPINE MESYLATE 1 MG TABLET PO PRN (08:29)
[2017-11-27] MEDS: METFORMIN HCL 500 MG TABLET PO SCH (08:29)
[2017-11-27] MEDS: LIOTHYRONINE SODIUM 5 MCG TABLET PO SCH (08:29)
[2017-11-27] MEDS: MIDODRINE HCL 5 MG TABLET PO SCH ×2 (08:30→20:11)
[2017-11-27 15:35] VITALS: BP 123/61
[2017-11-27] MEDS: TAMSULOSIN HCL 0.4 MG CAP.SR.24H PO SCH (17:23)
[2017-11-27 20:00] VITALS: BP 128/82
[2017-11-27] MEDS: CLONAZEPAM 1 MG TABLET PO SCH (20:11)
[2017-11-28] MEDS: LEVOTHYROXINE SODIUM 88 MCG TABLET PO SCH (06:48)
[2017-11-28 07:30] VITALS: BP 129/50
[2017-11-28] MEDS: DIVALPROEX ER 500 MG TAB.SR.24H PO SCH ×2 (08:02→20:50)
[2017-11-28] MEDS: HALOPERIDOL 5 MG TABLET PO SCH ×3 (08:02→17:07)
[2017-11-28] MEDS: METFORMIN HCL 500 MG TABLET PO SCH (08:02)
[2017-11-28] MEDS: OLANZAPINE 5 MG TABLET PO SCH (08:02)
[2017-11-28] MEDS: LIOTHYRONINE SODIUM 5 MCG TABLET PO SCH (08:03)
[2017-11-28] MEDS: MIDODRINE HCL 5 MG TABLET PO SCH ×2 (08:03→20:49)
[2017-11-28] MEDS: CHOLECALCIFEROL 1,000 UNIT TABLET PO SCH (08:03)
[2017-11-28] MEDS: ASPIRIN EC 81 MG TABLET.DR PO SCH (08:03)
[2017-11-28] MEDS: BENZTROPINE MESYLATE 1 MG TABLET PO PRN (12:57)
[2017-11-28] MEDS: CLONAZEPAM 1 MG TABLET PO SCH ×3 (12:57→20:49)
[2017-11-28] MEDS: ACETAMINOPHEN 325 MG TABLET PO PRN (12:57)
[2017-11-28 15:11] VITALS: BP 116/70
[2017-11-28] MEDS: TAMSULOSIN HCL 0.4 MG CAP.SR.24H PO SCH (17:06)
[2017-11-28 19:30] VITALS: BP 109/60
[2017-11-28] MEDS: DOCUSATE SODIUM 100 MG CAPSULE PO SCH (20:49)
[2017-11-28] MEDS ORDERED: OLANZAPINE 5 MG TABLET PO SCH (21:00)
[2017-11-29] MEDS: LEVOTHYROXINE SODIUM 88 MCG TABLET PO SCH (06:57)
[2017-11-29 07:08] LABS: *BILIRUBIN,URIN NEGATIVE (NEGATIVE); *BLOOD, URINE NEGATIVE (NEGATIVE); *CLARITY,URINE CLEAR (CLEAR); *COLOR,URINE YELLOW (YELLOW); *KETONES,URINE NEGATIVE (NEGATIVE); *PROTEIN,URINE NEGATIVE (NEGATIVE); LEUKOCYTE ESTERASE ,URINE NEGATIVE (NEGATIVE); NITRITE, URINE NEGATIVE (NEGATIVE); UGLUCOSE NEGATIVE (NEGATIVE)
[2017-11-29 07:14] LABS: RBC,URINE NONE SEEN /HPF (0-3)
[2017-11-29 07:15] LABS: BACTERIA,URINE FEW /HPF (NONE SEEN); SQUAMOUS EPITHELIAL CELL,UR FEW /HPF (NONE SEEN); WBC,URINE 0-3 /HPF (0-3)
[2017-11-29 07:30] VITALS: BP 103/51
[2017-11-29 07:36] LABS: BASOPHILS % (AUTO) 0.8 % (0.0-2.0); EOSINOPHILS % (AUTO) 1.2 % (0.0-7.0); HEMATOCRIT 35.1 % (36.7-47.1); HEMOGLOBIN 11.8 g/dL (12.5-16.3); LYMPHOCYTES # (AUTO) 1.5 K/uL (20.0-40.0); LYMPHOCYTES % (AUTO) 58.5 % (20.5-51.5); MEAN CORPUSCULAR HEMOGLOBIN 35.6 uug (23.8-33.4); MEAN CORPUSCULAR HGB CONC 34 g/dL (32.5-36.3); MONOCYTES # (AUTO) 0.3 K/uL (2.0-10.0); NEUTROPHILS # (AUTO) 0.7 K/uL (1.8-8.9); NEUTROPHILS % (AUTO) 27.5 % (38.5-71.5); PLATELET COUNT (AUTO) 128 K/uL (152-348); RED BLOOD CELL COUNT(AUTO) 3.31 MIL/uL (4.06-5.63); WHITE BLOOD COUNT (AUTO) 2.6 K/uL (3.6-10.2)
[2017-11-29 07:56] LABS: ALANINE AMINOTRANSFERASE 18 U/L (16-63); ALKALINE PHOSPHATASE 55 U/L (50-136); ASPARTATE AMINOTRANSFERASE 12 U/L (15-37); BILIRUBIN,TOTAL 0.5 mg/dL (0.2-1.0); CARBON DIOXIDE 31 mmol/L (21-32); CHLORIDE 106 mmol/L (98-107); CHOLESTEROL 92 mg/dL (<200); CREATININE 0.6 mg/dL (0.6-1.3); GLUCOSE 71 mg/dL (74-106); HDL CHOLESTEROL 55 mg/dL (40-60); MAGNESIUM 1.9 mg/dL (1.8-2.4); PHOSPHOROUS 3.8 mg/dL (2.5-4.9); POTASSIUM 4.1 mmol/L (3.5-5.1); TOTAL PROTEIN, SERUM 6.4 g/dL (6.4-8.2); UREA NITROGEN, BLOOD 19 mg/dL (7-18)
[2017-11-29 08:09] LABS: TRIGLYCERIDES 22 MG/DL (30-150)
[2017-11-29] MEDS: CLONAZEPAM 1 MG TABLET PO SCH ×3 (08:22→20:16)
[2017-11-29] MEDS: METFORMIN HCL 500 MG TABLET PO SCH (08:22)
[2017-11-29] MEDS: ASPIRIN EC 81 MG TABLET.DR PO SCH (08:22)
[2017-11-29] MEDS: DOCUSATE SODIUM 100 MG CAPSULE PO SCH ×2 (08:22→20:16)
[2017-11-29] MEDS: DIVALPROEX ER 500 MG TAB.SR.24H PO SCH ×2 (08:22→20:15)
[2017-11-29] MEDS: MIDODRINE HCL 5 MG TABLET PO SCH ×2 (08:23→20:15)
[2017-11-29] MEDS: LIOTHYRONINE SODIUM 5 MCG TABLET PO SCH (08:23)
[2017-11-29] MEDS: CHOLECALCIFEROL 1,000 UNIT TABLET PO SCH (08:23)
[2017-11-29] MEDS: OLANZAPINE 5 MG TABLET PO SCH (08:23)
[2017-11-29] MEDS: HALOPERIDOL 5 MG TABLET PO SCH ×3 (08:23→17:20)
[2017-11-29 09:51] LABS: LYMPHOCYTES % (MANUAL) 60 % (20-40); MONOCYTES % (MANUAL) 10 % (2-10); NEUTROPHILS % (MANUAL) 30 % (42-75)
[2017-11-29 16:00] VITALS: BP 105/54
[2017-11-29] MEDS: GABAPENTIN 100 MG CAPSULE PO SCH (17:20)
[2017-11-29] MEDS: ARIPIPRAZOLE 5 MG TABLET PO SCH (17:20)
[2017-11-29] MEDS: TAMSULOSIN HCL 0.4 MG CAP.SR.24H PO SCH (18:00)
[2017-11-29 20:10] VITALS: BP 117/64
[2017-11-30] MEDS: LEVOTHYROXINE SODIUM 88 MCG TABLET PO SCH (06:42)
[2017-11-30 07:30] VITALS: BP 91/41
[2017-11-30] MEDS: HALOPERIDOL 5 MG TABLET PO SCH ×3 (08:16→17:12)
[2017-11-30] MEDS: LIOTHYRONINE SODIUM 5 MCG TABLET PO SCH (08:16)
[2017-11-30] MEDS: CLONAZEPAM 1 MG TABLET PO SCH ×3 (08:17→20:10)
[2017-11-30] MEDS: DIVALPROEX ER 500 MG TAB.SR.24H PO SCH ×2 (08:17→20:12)
[2017-11-30] MEDS: GABAPENTIN 100 MG CAPSULE PO SCH ×3 (08:17→17:12)
[2017-11-30] MEDS: CHOLECALCIFEROL 1,000 UNIT TABLET PO SCH (08:17)
[2017-11-30] MEDS: ASPIRIN EC 81 MG TABLET.DR PO SCH (08:18)
[2017-11-30] MEDS: MIDODRINE HCL 5 MG TABLET PO SCH ×2 (08:18→20:11)
[2017-11-30] MEDS: DOCUSATE SODIUM 100 MG CAPSULE PO SCH ×2 (08:18→20:11)
[2017-11-30] MEDS: ARIPIPRAZOLE 5 MG TABLET PO SCH ×2 (08:18→17:12)
[2017-11-30] MEDS: BENZTROPINE MESYLATE 1 MG TABLET PO PRN (12:31)
[2017-11-30 16:36] VITALS: BP 92/44
[2017-11-30] MEDS: TAMSULOSIN HCL 0.4 MG CAP.SR.24H PO SCH (17:12)
[2017-11-30 20:00] VITALS: BP 102/49
[2017-12-01] MEDS ORDERED: INSULIN REGULAR, HUMAN 300 UNIT/3 ML VIAL SQ PRN (06:15)
[2017-12-01] MEDS ORDERED: DEXTROSE 50% 50 ML DISP.SYRIN IV PRN (06:15)
[2017-12-01 07:30] VITALS: BP 93/49
[2017-12-01] MEDS ORDERED: BLOOD SUGAR DIAGNOSTIC 1 EACH STRIP VI SCH (07:30)
[2017-12-01] MEDS: CHOLECALCIFEROL 1,000 UNIT TABLET PO SCH (08:32)
[2017-12-01] MEDS: ASPIRIN EC 81 MG TABLET.DR PO SCH (08:32)
[2017-12-01] MEDS: LIOTHYRONINE SODIUM 5 MCG TABLET PO SCH (08:32)
[2017-12-01] MEDS: ARIPIPRAZOLE 5 MG TABLET PO SCH (08:32)
[2017-12-01 08:33] VITALS: BP 93/49
[2017-12-01] MEDS: MIDODRINE HCL 5 MG TABLET PO SCH (08:33)
[2017-12-01] MEDS: DIVALPROEX ER 500 MG TAB.SR.24H PO SCH (08:33)
[2017-12-01] MEDS: DOCUSATE SODIUM 100 MG CAPSULE PO SCH (08:33)
[2017-12-01] MEDS: GABAPENTIN 100 MG CAPSULE PO SCH ×2 (08:33→13:00)
[2017-12-01] MEDS: HALOPERIDOL 5 MG TABLET PO SCH ×2 (08:33→12:59)
[2017-12-01] MEDS: LEVOTHYROXINE SODIUM 88 MCG TABLET PO SCH (08:36)
[2017-12-01] MEDS: CLONAZEPAM 1 MG TABLET PO SCH (08:36)
[2017-12-01] MEDS: BENZTROPINE MESYLATE 1 MG TABLET PO PRN (12:59)
== END 2017-12-01 14:41 | DRG 885 ==
LOC: GPSOV 21:08 → GPS 11-10 14:17
PROVIDERS: ADMIT Psychiatry & Neurology Psychiatry; ATTEND Internal Medicine
DX: F25.0 Schizoaffective disorder, bipolar type (principal); F02.80 Dementia in other diseases classified elsewhere, unspecified severity, without behavioral disturbance, psychotic disturbance, mood disturbance, and anxiety; G93.41 Metabolic encephalopathy; E44.0 Moderate protein-calorie malnutrition; R00.1 Bradycardia, unspecified; E03.9 Hypothyroidism, unspecified; G31.83 Neurocognitive disorder with Lewy bodies; N40.0 Benign prostatic hyperplasia without lower urinary tract symptoms; F41.9 Anxiety disorder, unspecified; D69.6 Thrombocytopenia, unspecified; Z68.23 Body mass index [BMI] 23.0-23.9, adult; D53.9 Nutritional anemia, unspecified; I10 Essential (primary) hypertension; I95.9 Hypotension, unspecified; Z79.899 Other long term (current) drug therapy; E11.9 Type 2 diabetes mellitus without complications
CPT/HCPCS: 36415; 80164; 82533; 83735; 84100; 84443; 85025; 87086; 97116; 97530; J1815